=== PATIENT | female | born 2005 | race Caucasian/White ===

== ENCOUNTER 2024-09-11 17:42 | Outpatient (CLI) | payer BC, SELFPAY ==
[2024-09-11 22:59] LABS: Chlamydia DNA Amplified* NOT DETECTED (No Detected); GC DNA Amplified* NOT DETECTED (No Detected)
== END 2024-09-11 17:43 | disposition home or self-care (01) ==
LOC: NFLDUCREF 17:42
PROVIDERS: Visit Provider Physician Assistant Surgical
DX: R30.0 Dysuria (principal); N39.0 Urinary tract infection, site not specified; R35.0 Frequency of micturition
CPT/HCPCS: 87086; 87491; 87591

== ENCOUNTER 2025-01-01 05:55 | Emergency (ER) | payer BC, SELFPAY ==
[2025-01-01 06:08] VITALS: BP 112/75; PULSE 92; RESP 18; TEMP 36.9; O2SAT 99
[2025-01-01 06:16] LABS: Appearance Urine Clear (Clear)
--- NOTE | 2025-01-01 06:25 | ED_ITS ---
HPI - Abdominal Pain General Time Seen by Provider: 06:25 Date Seen: 01/01/25 Chief Complaint: Abdominal Pain Stated Complaint: abdominal pain Time Seen by Provider: 01/01/25 06:24 Source: patient Mode of arrival: ambulatory History of Present Illness HPI narrative: Celeste is a 19-year-old female who presents the emergency department for evaluation of abdominal pain. Patient reports that she woke up this morning around 0500 am with the feeling that she had to urinate. Patient reports severe pain in her abdomen around her belly button at that time that was described as a sharp pain and worse with movment. Patient reports she was unable to move due to severe pain and her boyfriend had to get her up. Brienet denies any dysuria, hematuria. Patient reports that she did have some improvement of pain after urination but still has some pain in her mid abdomen by her belly button. Patient denies any fever, chills, nausea, vomiting, diarrhea, constipation. Denies any chest pain, shortness of breath, back pain and flank pain. No medications prior to arrival. Patient is reports history of irregular periods, currently is on her menstrual cycle is having some spotting. Denies any other vaginal or pelvic pain, no other complaints. Related Data Home Medications ?Medication ?Instructions ?Recorded ?Confirmed medroxyprogesterone 150 mg/mL 150 mg IM [id number] 09/1109/11/24 intramuscular suspension (Depo-Provera) quetiapine 25 mg tablet (Seroquel) 12.5 mg PO QDAY 12/2709/11/24 Allergies Allergy/AdvReac Type Severity Reaction Status Date / Time latex Allergy Verified 01/01/25 06:11 Penicillins Allergy Verified 01/01/25 06:11 Review of Systems Narrative Past medical history, past surgical history, medications, allergies, family history, and social history were reviewed with the patient. No additional pertinent items. A medically appropriate review of systems was performed with pertinent positives and negatives noted in HPI, all other systems negative. PFSH PFS Social History Smoking Status: Never smoker Second hand tobacco smoke exposure: No How often do you have a drink containing alcohol: never AUDIT-C Alcohol total score: 0 Non-prescribed substance use: denies use Exam Narrative: Exam Narrative: General: Afebrile, no acute distress HEENT: Normocephalic, atraumatic, conjunctiva normal. MMM Neck: non-tender, supple Cardio: regular rate. regular rhythm Resp: Normal work of breathing, no respiratory distress, lungs clear bilaterally, no wheezing, rhonchi, rales Chest/Back: no visual signs of trauma, no midline tenderness, no CVA tenderness Abdomen: soft, non distension, no tenderness, no peritoneal signs Neuro: alert and fully oriented. CN II-XII grossly intact. Grossly normal strength and sensation in all extremities. MSK: no deformities. Normal range of motion Integumentary/Skin: no rash visualized, normal color Psych: normal affect, normal behavior Const: Vital Signs, click to edit/add: Vital Signs - 24 hr 01/01/25 06:08 01/01/25 07:12 Temperature 98.5 F 98.5 F Pulse Rate [Pulse Oximeter] 92 Respiratory Rate 18 Blood Pressure [Ri ght Upper Arm] 112/75 Pulse Oximetry 99 Oxygen Delivery Me thod Room Air Course Vital Signs Vital signs: Initial Vital Signs Temperature 98.5 F 01/01/25 06:08 Temperature Source Temporal Artery Scan 01/01/25 06:08 Pulse Rate 92 01/01/25 06:08 Respiratory Rate 18 01/01/25 06:08 Blood Pressure 112/75 01/01/25 06:08 Blood Pressure Mean 87 01/01/25 06:08 Blood Pressure Position Sitting 01/01/25 06:08 Pulse Oximetry 99 01/01/25 06:08 Oxygen Delivery Method Room Air 01/01/25 06:08 Vital Signs Temperature 98.5 F 01/01/25 06:08 Pulse Rate 92 01/01/25 06:08 Respiratory Rate 18 01/01/25 06:08 Blood Pressure 112/75 01/01/25 06:08 Pulse Oximetry 99 01/01/25 06:08 Oxygen Delivery Method Room Air 01/01/25 06:08 Temperature 98.5 F 01/01/25 07:12 Pulse Rate 92 01/01/25 06:08 Respiratory Rate 18 01/01/25 06:08 Blood Pressure 112/75 01/01/25 06:08 Pulse Oximetry 99 01/01/25 06:08 Oxygen Delivery Method Room Air 01/01/25 06:08 Medications Administered Medications: Discontinued Medications Generic Name Dose Route Start Last Admin Trade Name Freq PRN Reason Stop Dose Admin Acetaminophen 1,000 mg 01/01/25 07:03 01/01/25 07:12 Acetaminophen 500 Mg Tablet PO 01/01/25 07:04 1,000 mg ONCE ONE Administration MDM - Abdominal Pain MDM Narrative Medical decision making narrative: Celeste is a 19-year-old female who presents the emergency department for evaluation of abdominal pain. Upon and rest patient is nontoxic appearing, afebrile, no distress. Abdomen is soft, nontender, nondistended with no rebound, guarding, no peritoneal signs. Differential diagnosis includes but is not limited to cystitis versus versus pyelonephritis versus colitis versus gas pain versus ovarian cyst versus torsion versus less likely appendicitis/cholecystitis - patient reports history of having her gallbladder and appendix removed in the past. Patient was treated with Tylenol for pain, urinalysis with no evidence of acute infection, negative . Did offer an discussed with patient and recommend comprehensive labs and possible further evaluation with pelvic ultrasound at this time patient like to hold off on further testing and does not want an IV or laboratory testing done. Low suspicious for acute intra-abdominal infection patient does not have her appendix per gallbladder. Discussed possible ovarian etiology over patient denies any history of ovarian cysts, and does report pain is located near her umbilicus. Patient is currently on her menstrual cycle so within discussed this could be etiology rib pain as well. On re-evaluation after Tylenol patient does report improvement of symptoms and at this time would like to discharge home without further testing (labs, ultrasound, CT) patient felt comfortable with discharge with continued supportive care, strict return precautions discussed if recurrent or worsening symptoms, vomiting, fever. Patient understands agrees the plan. Medical Records Attestation: I reviewed the patient's medical records. Lab Data Attestation: I reviewed the patient's lab results. Labs: Lab Results 01/01/25 01/01/25 Range/Units 06:09 06:29 Urine Color Yellow (Yellow) Urine Appearance Clear (Clear) Urine pH 5.5 (5.0-8.5) Ur Specific [place] 1.025 (1.000-1.030) Urine Protein Negative (Negative) Urine Glucose (UA) Negative (Negative) Urine Ketones Negative (Negative) Urine Blood 1+ A (Negative) Urine Nitrite Negative (Negative) Urine Bilirubin 1+ A (Negative) Urine Urobilinogen 0.2 (0.2-1.0) Ur Leukocyte Esterase Negative (Negative) Urine RBC 0-2 (0-2) Urine WBC 0-2 (0-5) Ur Squamous Epith Cells Few (None-Few) Urine Bacteria Few A (None) Urine HCG, Qual Negative (Negative) Discharge Plan Discharge Clinical Impression: Abdominal pain Patient Disposition: Home, Self-Care Condition: Improved Instructions: Abdominal Pain (ED) Additional Instructions: Please follow-up with your primary care provider in the next 2-3 days for further evaluation and follow-up. Please call to schedule an appointment. Please alternate taking Tylenol or ibuprofen as needed for pain. Please eat a bland diet and slowly advance as tolerated. Return to the emergency department if you develop high fever, severe abdominal pain, persistent vomiting, or any worsening symptoms. It was a pleasure taking care of you today. We hope you feel better soon. Prescriptions: No Action quetiapine [Seroquel] 25 mg tablet 12.5 mg PO QDAY medroxyprogesterone [Depo-Provera] 150 mg/mL suspension 150 mg IM [id number] Follow Up/Referrals: Provider,Not a Local [Primary Care Provider, Family Practice] Stand Alone Forms: [employer] Info Instructions
[2025-01-01 06:42] LABS: Ur HCG Qualitative* Negative (Negative)
[2025-01-01 07:12] VITALS: TEMP 36.9
[2025-01-01] MEDS: ACETAMINOPHEN 500 MG TABLET 1000 MG PO (07:12)
== END 2025-01-01 08:11 | disposition home or self-care (01) ==
PROVIDERS: Emergency Provider Emergency Medicine
DX: R10.9 Unspecified abdominal pain (principal)
CPT/HCPCS: 80053; 81001; 81025; 83690; 84703; 85025; 87086; 99283; 99284; A9270